=== PATIENT | female | born 1970 | race Caucasian/White ===

== ENCOUNTER 2017-07-23 02:32 | Emergency (ER) | payer OTHER ==
[2017-07-23 03:47] LABS: ADD MAN DIFF? NO
[2017-07-23 04:10] LABS: ANION GAP 14 (8-16); BLOOD UREA NITROGEN 13 mg/dl (7-20); CALCIUM 9.2 mg/dl (8.4-10.2); CARBON DIOXIDE 25 mmol/L (21-31); CHLORIDE 105 mmol/L (97-110); CREATININE 0.65 mg/dl (0.44-1.00); GLUCOSE 117 mg/dl (70-220); POTASSIUM 3.9 mmol/L (3.5-5.1); SODIUM 140 mmol/L (135-144)
[2017-07-23 04:18] LABS: WHITE BLOOD COUNT 8.1 10^3/ul (4.8-10.8)
[2017-07-23 04:18] LABS: BASOPHILS % 0.5 % (0.0-2.0); EOSINOPHILS # 0.1 10^3/ul (0.0-0.5); EOSINOPHILS % 1.7 % (0.0-7.0); HEMATOCRIT 34.1 % (37.0-47.0); HEMOGLOBIN 11.5 g/dl (12.0-16.0); LYMPHOCYTES # 3.1 10^3/ul (0.8-2.9); LYMPHOCYTES % 37.6 % (15.0-51.0); MEAN CORPUSCULAR HEMOGLOBIN 30.9 pg (29.0-33.0); MEAN CORPUSCULAR HGB CONC 33.7 g/dl (32.0-37.0); MEAN CORPUSCULAR VOLUME 91.7 fl (82.0-101.0); MEAN PLATELET VOLUME 10.2 fl (7.4-10.4); MONOCYTE # 0.5 10^3/ul (0.3-0.9); MONOCYTES % 6.5 % (0.0-11.0); NEUTROPHIL # 4.3 10^3/ul (1.6-7.5); NEUTROPHILS % 53.5 % (39.0-77.0); PLATELET COUNT 386 10^3/UL (140-415); RED BLOOD COUNT 3.72 10^6/ul (4.20-5.40)
[2017-07-23 04:26] LABS: TROPONIN-I < 0.012 ng/ml (0.00-0.12)
[2017-07-23 05:01] LABS: INR 0.92; PARTIAL THROMBOPLASTIN TIME 29.3 Sec (25.0-35.0); PROTIME 12.4 Sec (11.9-14.9)
[2017-07-23 05:18] LABS: D-DIMER < 220.00 ng/ml (<460)
[2017-07-23] MEDS: SOD CHLORIDE 0.9% 1,000 ML IV (05:47)
== END 2017-07-23 07:23 | disposition home or self-care (01) ==
LOC: E/R 02:32
DX: E03.9 Hypothyroidism, unspecified (principal); D64.9 Anemia, unspecified; R06.02 Shortness of breath
CPT/HCPCS: 36415; 71045; 80048; 84443; 84484; 85025; 85378; 85610; 85730; 93005; 99285-25

== ENCOUNTER 2017-10-03 07:44 | Inpatient (IN) | payer OTHER ==
[2017-10-03] MEDS: SOD CHLORIDE 0.9% 1,000 ML IV (08:08)
[2017-10-03 08:30] LABS: ADD MAN DIFF? NO
[2017-10-03 08:37] LABS: BASOPHIL # 0.1 10^3/ul (0.0-0.1); EOSINOPHILS # 0.1 10^3/ul (0.0-0.5); EOSINOPHILS % 1.6 % (0.0-7.0); HEMATOCRIT 31.4 % (37.0-47.0); HEMOGLOBIN 10.1 g/dl (12.0-16.0); LYMPHOCYTES # 2.5 10^3/ul (0.8-2.9); LYMPHOCYTES % 33.6 % (15.0-51.0); MEAN CORPUSCULAR HEMOGLOBIN 32.1 pg (29.0-33.0); MEAN CORPUSCULAR HGB CONC 32.2 g/dl (32.0-37.0); MEAN CORPUSCULAR VOLUME 99.7 fl (82.0-101.0); MONOCYTE # 0.5 10^3/ul (0.3-0.9); MONOCYTES % 6.4 % (0.0-11.0); NEUTROPHIL # 4.2 10^3/ul (1.6-7.5); PLATELET COUNT 382 10^3/UL (140-415); RED BLOOD COUNT 3.15 10^6/ul (4.20-5.40); RED CELL DISTRIBUTION WIDTH 13.2 % (11.5-14.5)
[2017-10-03 08:37] LABS: WHITE BLOOD COUNT 7.4 10^3/ul (4.8-10.8)
[2017-10-03 08:46] LABS: ADD UMIC YES; UR ASCORBIC ACID NEGATIVE (NEGATIVE); UR BACTERIA FEW /HPF (NONE SEEN); UR BILIRUBIN (Dip) NEGATIVE (NEGATIVE); UR BLOOD (Dip) 3+ mg/dL (NEGATIVE); UR CLARITY CLEAR (CLEAR); UR COLOR YELLOW (YELLOW); UR GLUCOSE (Dip) NEGATIVE (NEGATIVE); UR KETONES (Dip) 1+ mg/dL (NEGATIVE); UR LEUKOCYTE ESTERASE (Dip) NEGATIVE Leu/ul (NEGATIVE); UR MUCUS FEW /HPF (NONE SEEN); UR NITRITE (Dip) NEGATIVE (NEGATIVE); UR RBC 44 /HPF (0-5); UR SPECIFIC GRAVITY (Dip) 1.009 (1.003-1.030); UR TOTAL PROTEIN (Dip) NEGATIVE (NEGATIVE); UR UROBILINOGEN (Dip) NEGATIVE (NEGATIVE); UR WBC 7 /HPF (0-5)
[2017-10-03 08:52] LABS: INR 0.99; PARTIAL THROMBOPLASTIN TIME 26.9 Sec (25.0-35.0); PROTIME 13.2 Sec (11.9-14.9)
[2017-10-03 08:53] LABS: ALANINE AMINOTRANSFERASE 22 IU/L (13-69); ALBUMIN 3.7 g/dl (3.3-4.9); ALBUMIN/GLOBULIN RATIO 1.42; ALKALINE PHOSPHATASE 36 IU/L (42-121); ANION GAP 17 (8-16); ASPARTATE AMINO TRANSFERASE 21 IU/L (15-46); BILIRUBIN,INDIRECT 0.3 mg/dl (0-1.1); BILIRUBIN,TOTAL 0.3 mg/dl (0.2-1.3); BLOOD UREA NITROGEN 6 mg/dl (7-20); CARBON DIOXIDE 23 mmol/L (21-31); CHLORIDE 106 mmol/L (97-110); CREATININE 0.69 mg/dl (0.44-1.00); GLUCOSE 143 mg/dl (70-220); SODIUM 142 mmol/L (135-144); TOTAL PROTEIN 6.3 g/dl (6.1-8.1)
[2017-10-03 10:35] LABS: HEMATOCRIT 23.3 % (37.0-47.0); HEMOGLOBIN 7.6 g/dl (12.0-16.0)
[2017-10-03] MEDS: ALPRAZOLAM 0.25 MG TAB PO (10:44)
[2017-10-03] MEDS ORDERED: ONDANSETRON 4 MG INJ IV ×2 (12:30→15:00)
[2017-10-03] MEDS ORDERED: ACETAMINOPHEN 325 MG TAB PO ×2 (12:30→15:00)
[2017-10-03] MEDS: 1/2 NS + KCL 20 MEQ 1,000 ML IV (15:00)
[2017-10-03] MEDS ORDERED: NACL 0.9% 3 ML SYG IV (15:00)
[2017-10-03] MEDS ORDERED: ZOLPIDEM 5 MG TAB PO (15:00)
[2017-10-03] MEDS ORDERED: ALPRAZOLAM 1 MG TAB PO (15:00)
[2017-10-03] MEDS ORDERED: morphine 2 MG INJ IV (15:00)
[2017-10-03] MEDS ORDERED: DOCUSATE SODIUM 100 MG CAP PO (15:00)
[2017-10-03] MEDS: FERROUS SULFATE (EC) 325 MG TAB PO (20:44)
[2017-10-03 23:18] LABS: IMMEDIATE SPIN CROSSMATCH 1 2
[2017-10-03] MEDS: HYDROCODONE/APAP (5/325) TAB PO (23:37)
[2017-10-04] MEDS: 1/2 NS + KCL 20 MEQ 1,000 ML IV ×2 (01:00→11:00)
[2017-10-04 05:06] LABS: ADD MAN DIFF? NO
[2017-10-04 05:10] LABS: BASOPHILS % 0.6 % (0.0-2.0); EOSINOPHILS # 0.1 10^3/ul (0.0-0.5); EOSINOPHILS % 1.5 % (0.0-7.0); HEMATOCRIT 27.3 % (37.0-47.0); HEMOGLOBIN 9.1 g/dl (12.0-16.0); LYMPHOCYTES # 2.1 10^3/ul (0.8-2.9); LYMPHOCYTES % 38.4 % (15.0-51.0); MEAN CORPUSCULAR HEMOGLOBIN 31.2 pg (29.0-33.0); MEAN CORPUSCULAR HGB CONC 33.3 g/dl (32.0-37.0); MEAN CORPUSCULAR VOLUME 93.5 fl (82.0-101.0); MEAN PLATELET VOLUME 9.9 fl (7.4-10.4); MONOCYTE # 0.4 10^3/ul (0.3-0.9); NEUTROPHIL # 2.7 10^3/ul (1.6-7.5); NEUTROPHILS % 51.1 % (39.0-77.0); PLATELET COUNT 182 10^3/UL (140-415); RED BLOOD COUNT 2.92 10^6/ul (4.20-5.40); RED CELL DISTRIBUTION WIDTH 16.2 % (11.5-14.5)
[2017-10-04 05:10] LABS: WHITE BLOOD COUNT 5.4 10^3/ul (4.8-10.8)
[2017-10-04 05:20] LABS: HEMOGLOBIN A1C 4.8 % (0-5.9)
[2017-10-04 05:23] LABS: ANION GAP 12 (8-16); BLOOD UREA NITROGEN 4 mg/dl (7-20); CALCIUM 8.1 mg/dl (8.4-10.2); CARBON DIOXIDE 24 mmol/L (21-31); CHLORIDE 111 mmol/L (97-110); CREATININE 0.63 mg/dl (0.44-1.00); GLUCOSE 82 mg/dl (70-220); MAGNESIUM 1.8 mg/dl (1.7-2.5); PHOSPHORUS 4.2 mg/dl (2.5-4.9); POTASSIUM 3.8 mmol/L (3.5-5.1); SODIUM 143 mmol/L (135-144)
[2017-10-04 05:40] LABS: FREE T4 (FREE THYROXINE) 1.11 ng/dl (0.64-1.79)
[2017-10-04 05:40] LABS: FREE THYROXINE INDEX (Calc) 2.66 ug/ml (0.65-3.89); T3 UPTAKE 41.5 % (23.5-40.5); T4 (THYROXINE) 6.4 ug/dl (5.5-11.0)
[2017-10-04] MEDS: MULTIVITAMINS THERAPEUTIC TAB PO (09:00)
[2017-10-04] MEDS: FERROUS SULFATE (EC) 325 MG TAB PO (09:00)
[2017-10-04] MEDS: CHOLECALCIFEROL 400 UNITS TAB PO (09:00)
[2017-10-04 11:38] LABS: IRON 178 ug/dl (35-150)
[2017-10-04 11:47] LABS: % IRON SATURATION 78 % SAT (22-52); TOTAL IRON BINDING CAPACITY 228 ug/dl (241-421)
[2017-10-04 12:19] LABS: FERRITIN 22.5 ng/ml (6.2-137.0)
[2017-10-04] MEDS ORDERED: PROPOFOL 20 ML (12:42)
[2017-10-04] MEDS ORDERED: MIDAZOLAM 1 MG/ML 2 ML INJ (12:42)
[2017-10-04] MEDS ORDERED: LIDOCAINE 100 MG SYRINGE (12:42)
[2017-10-04] MEDS ORDERED: FENTAnyl 50 MCG/ML VIAL (12:42)
[2017-10-04] MEDS ORDERED: MIDAZOLAM 1 MG/ML 2 ML INJ IV (13:00)
[2017-10-04] MEDS ORDERED: EPHEDrine SULFATE 50 MG/5 ML SYG IV (13:00)
[2017-10-04] MEDS ORDERED: FENTAnyl 50 MCG/ML VIAL IV ×2 (13:00)
[2017-10-04] MEDS ORDERED: HYDROmorphONE (0.2 MG/ML) 10ML SYG IV (13:00)
[2017-10-04] MEDS ORDERED: MEPERIDINE 25 MG INJ IV (13:00)
[2017-10-04] MEDS ORDERED: LABETALOL HCL 20MG INJ IV (13:00)
[2017-10-04] MEDS ORDERED: OXYCODONE/ACETAMINOPHEN (5/325) TAB PO ×2 (13:00)
[2017-10-04] MEDS ORDERED: ONDANSETRON 4 MG INJ IV (13:00)
[2017-10-04] MEDS ORDERED: METOCLOPRAMIDE 10 MG INJ (13:03)
[2017-10-04] MEDS ORDERED: CEFAZOLIN 1 GM INJ (13:13)
[2017-10-04] MEDS ORDERED: PHENYLephrine (100 MCG/ML) 5ML SYG (13:17)
[2017-10-04] MEDS ORDERED: ONDANSETRON 4 MG INJ (13:18)
[2017-10-04] MEDS ORDERED: DEXAMETHASONE 4 MG/ML 1 ML INJ (13:18)
[2017-10-04] MEDS ORDERED: ACETAMINOPHEN 1000MG/100ML IV 100 ML (13:21)
[2017-10-04] MEDS: HYDROmorphONE (0.2 MG/ML) 10ML SYG IV ×2 (14:07→14:22)
== END 2017-10-04 18:05 | disposition home or self-care (01) | DRG 989 ==
LOC: E/R 07:44 → MS1 12:16
PROVIDERS: Pediatrics
PROC: 30233N1 Transfusion of Nonautologous Red Blood Cells into Peripheral Vein, Percutaneous Approach (ICD-10-PCS; principal; 2017-10-04 12:58)
PROC: 0UDB8ZZ Extraction of Endometrium, Via Natural or Artificial Opening Endoscopic (ICD-10-PCS; 2017-10-04 12:58)
DX: D64.9 Anemia, unspecified (principal); D25.9 Leiomyoma of uterus, unspecified; N93.9 Abnormal uterine and vaginal bleeding, unspecified; E03.9 Hypothyroidism, unspecified; Z87.891 Personal history of nicotine dependence
CPT/HCPCS: 36415; 36430; 72196; 76856; 80048; 80053; 81001; 82728; 83036; 83540; 83735; 84100; 84436; 84439; 84479; 84703; 85014; 85018; 85025; 85610; 85730; 86850; 86900; 86901; 86920; 88305; 93005; 99291-25

== ENCOUNTER 2017-10-14 05:39 | Inpatient (IN) | payer OTHER ==
[2017-10-14] MEDS: STERILE WATER 1L IRRIG BTL IRR
[2017-10-14] MEDS: SODIUM CHLORIDE 0.9% 1L IRRIG IRR
[2017-10-14] MEDS: CEFAZOLIN 2 GM/50 ML (PMX) 50 ML IVPB (06:00)
[2017-10-14] MEDS ORDERED: KETOROLAC 30 MG INJ (07:39)
[2017-10-14] MEDS ORDERED: PROPOFOL 20 ML (07:39)
[2017-10-14] MEDS ORDERED: morphine SULFATE/PF (10 MG/10 ML) INJ (07:39)
[2017-10-14] MEDS ORDERED: METOCLOPRAMIDE 10 MG INJ (07:39)
[2017-10-14] MEDS ORDERED: MIDAZOLAM 1 MG/ML 2 ML INJ ×2 (07:39→07:40)
[2017-10-14] MEDS ORDERED: ONDANSETRON 4 MG INJ (07:39)
[2017-10-14] MEDS ORDERED: BUPIVACAINE 0.75%/DEXT (SPINAL) 2 ML INJ (07:51)
[2017-10-14] MEDS ORDERED: FENTAnyl 50 MCG/ML VIAL (07:51)
[2017-10-14] MEDS ORDERED: ACETAMINOPHEN 1000MG/100ML IV 100 ML (08:20)
[2017-10-14] MEDS ORDERED: ALBUMIN HUMAN 5% 250 ML (08:35)
[2017-10-14] MEDS ORDERED: HYDROmorphONE (0.2 MG/ML) 10ML SYG IV ×2 (10:00)
[2017-10-14] MEDS ORDERED: HYDROmorphONE 0.5 MG/0.5 ML SYG IV (10:00)
[2017-10-14] MEDS ORDERED: EPHEDrine SULFATE 50 MG/5 ML SYG IV (10:00)
[2017-10-14] MEDS ORDERED: DIPHENHYDRAMINE 50 MG INJ IV (10:00)
[2017-10-14] MEDS ORDERED: NALOXONE (0.4 MG/ML) INJ IV (10:00)
[2017-10-14] MEDS ORDERED: ONDANSETRON 4 MG INJ IV (10:00)
[2017-10-14] MEDS ORDERED: HYDROmorphONE 1 MG/ML SYG IV (10:00)
[2017-10-14] MEDS ORDERED: MEPERIDINE 25 MG INJ IV (10:00)
[2017-10-14] MEDS ORDERED: EPHEDrine SULFATE 50 MG/5 ML SYG (10:05)
[2017-10-14] MEDS: HYDROmorphONE (0.2 MG/ML) 10ML SYG IV ×3 (10:34→11:05)
[2017-10-14] MEDS: DIPHENHYDRAMINE 50 MG INJ IV (11:09)
[2017-10-14] MEDS: KETOROLAC 30 MG INJ IV (12:38)
[2017-10-14] MEDS: LACTATED RINGER'S 1,000 ML IV* (12:43)
[2017-10-14] MEDS: HYDROmorphONE 0.5 MG/0.5 ML SYG IV (16:04)
[2017-10-14] MEDS: ONDANSETRON 4 MG INJ IV (18:39)
[2017-10-14] MEDS: ALPRAZOLAM 0.25 MG TAB PO (21:20)
[2017-10-15 09:09] LABS: ADD MAN DIFF? NO
[2017-10-15 09:10] LABS: WHITE BLOOD COUNT 6.3 10^3/ul (4.8-10.8)
[2017-10-15 09:10] LABS: BASOPHILS % 0.3 % (0.0-2.0); EOSINOPHILS # 0.1 10^3/ul (0.0-0.5); EOSINOPHILS % 0.8 % (0.0-7.0); HEMATOCRIT 27.1 % (37.0-47.0); HEMOGLOBIN 8.7 g/dl (12.0-16.0); LYMPHOCYTES # 0.8 10^3/ul (0.8-2.9); LYMPHOCYTES % 11.9 % (15.0-51.0); MEAN CORPUSCULAR HEMOGLOBIN 30.6 pg (29.0-33.0); MEAN CORPUSCULAR HGB CONC 32.1 g/dl (32.0-37.0); MEAN CORPUSCULAR VOLUME 95.4 fl (82.0-101.0); MONOCYTE # 0.6 10^3/ul (0.3-0.9); MONOCYTES % 10.2 % (0.0-11.0); NEUTROPHIL # 4.8 10^3/ul (1.6-7.5); NEUTROPHILS % 76.6 % (39.0-77.0); PLATELET COUNT 308 10^3/UL (140-415); RED BLOOD COUNT 2.84 10^6/ul (4.20-5.40); RED CELL DISTRIBUTION WIDTH 13.8 % (11.5-14.5)
[2017-10-15] MEDS: IBUPROFEN 600 MG TAB PO ×3 (09:16→22:14)
[2017-10-15] MEDS: SOD CHLORIDE 0.45% 1,000 ML IV ×2 (09:17→19:02)
[2017-10-15 09:32] LABS: ALANINE AMINOTRANSFERASE 16 IU/L (13-69); ALBUMIN 2.8 g/dl (3.3-4.9); ALBUMIN/GLOBULIN RATIO 1.16; ALKALINE PHOSPHATASE 33 IU/L (42-121); ANION GAP 13 (8-16); ASPARTATE AMINO TRANSFERASE 14 IU/L (15-46); BILIRUBIN,INDIRECT 0.3 mg/dl (0-1.1); BILIRUBIN,TOTAL 0.3 mg/dl (0.2-1.3); BLOOD UREA NITROGEN 3 mg/dl (7-20); CALCIUM 8.3 mg/dl (8.4-10.2); CARBON DIOXIDE 27 mmol/L (21-31); CHLORIDE 102 mmol/L (97-110); CREATININE 0.68 mg/dl (0.44-1.00); GLUCOSE 135 mg/dl (70-220); POTASSIUM 4.2 mmol/L (3.5-5.1); SODIUM 138 mmol/L (135-144); TOTAL PROTEIN 5.2 g/dl (6.1-8.1)
[2017-10-15 13:59] LABS: ADD UMIC YES; UR ASCORBIC ACID NEGATIVE (NEGATIVE); UR BILIRUBIN (Dip) NEGATIVE (NEGATIVE); UR BLOOD (Dip) 1+ mg/dL (NEGATIVE); UR CLARITY CLEAR (CLEAR); UR COLOR COLORLESS (YELLOW); UR GLUCOSE (Dip) NEGATIVE (NEGATIVE); UR KETONES (Dip) TRACE mg/dL (NEGATIVE); UR LEUKOCYTE ESTERASE (Dip) NEGATIVE Leu/ul (NEGATIVE); UR NITRITE (Dip) NEGATIVE (NEGATIVE); UR RBC 0 /HPF (0-5); UR SPECIFIC GRAVITY (Dip) 1.001 (1.003-1.030); UR TOTAL PROTEIN (Dip) NEGATIVE (NEGATIVE); UR UROBILINOGEN (Dip) NEGATIVE (NEGATIVE); UR WBC 0 /HPF (0-5)
[2017-10-15] MEDS: HYDROCODONE/APAP (5/325) TAB PO (20:17)
[2017-10-16] MEDS: SOD CHLORIDE 0.45% 1,000 ML IV ×4 (00:30→17:46)
[2017-10-16] MEDS: HYDROCODONE/APAP (5/325) TAB PO ×4 (00:33→21:18)
[2017-10-16] MEDS: IBUPROFEN 600 MG TAB PO ×2 (06:59→13:27)
[2017-10-17] MEDS: IBUPROFEN 600 MG TAB PO ×3 (00:08→14:00)
[2017-10-17] MEDS: SOD CHLORIDE 0.45% 1,000 ML IV (01:42)
[2017-10-17] MEDS: HYDROCODONE/APAP (5/325) TAB PO ×2 (06:23→13:29)
== END 2017-10-17 15:37 | disposition home or self-care (01) | DRG 743 ==
LOC: REC 05:39 → MS1 10-15 22:10
PROC: 0UT90ZL Resection of Uterus, Supracervical, Open Approach (ICD-10-PCS; principal; 2017-10-14 07:44)
PROC: 0UT70ZZ Resection of Bilateral Fallopian Tubes, Open Approach (ICD-10-PCS; 2017-10-14 07:44)
DX: N92.0 Excessive and frequent menstruation with regular cycle (principal); D25.1 Intramural leiomyoma of uterus; F17.200 Nicotine dependence, unspecified, uncomplicated
CPT/HCPCS: 71045; 80053; 81001; 85025; 86850; 86900; 86901; 86920; 87086; 88305